=== PATIENT | female | born 1980 | race Caucasian/White ===

== ENCOUNTER → 2016-10-31 | Outpatient (CLI) | payer BC ==
--- NOTE | ~2016-10-31 | PF ---
[place], [place] PULMONARY FUNCTION TEST [id number] UNIT #: [id number] ROOM: DOCTOR: DEONTE DENTON MD,TEJINDER BIRTHDATE: [birth year] DOS: 11/01/2016 The test was ordered by Inge Boston, nurse practitioner. The test was completed on 10/31/2016. HISTORY: The patient noted as a 36 years old female with height of 66 inches, weight of 210 pounds, BMI 33.9. The patient does not have any past history of tobacco use. The patient was reported symptoms of shortness of breath with exertion. There was no cough or wheezing noted. SPIROMETRY: The patient's FVC were recorded 4.26, later 107% predicted value. FEV1 was noted 3.35 liters at 103% predicted value. Ratio of FEV1/FVC were recorded as 97% rather 79%. Flow volume loop for this patient was essentially noted as normal. The patient lung volumes, thoracic gas volume recorded 82%, residual volume 83%, total lung capacity 102%. Lung volumes were noted normal. The patient lung diffusion noted normal. The patient's airway resistance and passive conductance was noted normal as well. FINAL IMPRESSION: Normal pulmonary function testing was noted. TEJINDER CLEMONS MD CM:PFREPORT:PULMONARY FUNCTION TEST [id number] TEJINDER DENTON MD
== END ==
LOC: CP 08:13
DX: E03.9 Hypothyroidism, unspecified (principal); R06.02 Shortness of breath

== ENCOUNTER → 2017-01-19 | Outpatient (CLI) | payer BC | END | disposition home or self-care (01) | LOC: US 09:51 | DX: K76.0 Fatty (change of) liver, not elsewhere classified (principal); K76.9 Liver disease, unspecified ==

== ENCOUNTER → 2019-07-28 | Outpatient (CLI) | payer BC | END | disposition home or self-care (01) | LOC: MAMMO 11:15 | DX: Z12.31 Encounter for screening mammogram for malignant neoplasm of breast (principal); Z00.00 Encounter for general adult medical examination without abnormal findings; E03.9 Hypothyroidism, unspecified; R22.1 Localized swelling, mass and lump, neck; Z20.1 Contact with and (suspected) exposure to tuberculosis; E04.1 Nontoxic single thyroid nodule ==

== ENCOUNTER → 2020-04-20 | Outpatient (CLI) | payer BC | END | disposition home or self-care (01) | LOC: COVID19 00:27 | PROVIDERS: ATTEND Nurse Practitioner Family | DX: Z20.828 Contact with and (suspected) exposure to other viral communicable diseases (principal); A69.20 Lyme disease, unspecified; R53.83 Other fatigue ==

== ENCOUNTER → 2020-04-27 | Outpatient (CLI) | payer BC | END | disposition home or self-care (01) | LOC: LAB 11:36 | PROVIDERS: ATTEND Nurse Practitioner Family | DX: E83.51 Hypocalcemia (principal) ==

== ENCOUNTER 2021-03-03 12:38 | Inpatient (IN) | payer BC ==
[~2021-03-03] VITALS: Ht 168 cm; Wt 104.3 kg
[2021-03-03 17:37] LABS: BASO % 0.2 % (0.0-1.0); HEMATOCRIT 46.1 % (37.0-47.0); LYMPH # 0.8 10*3/uL (1.3-4.4); LYMPH % 14.7 % (27.0-41.0); MEAN CELL VOLUME 90.6 fl (81.0-99.0); MEAN CORPUSCULAR HGB 28.9 pg (27.0-31.0); MEAN CORPUSCULAR HGB CONC 31.9 g/dl (33.0-37.0); MEAN PLATELET VOLUME 9.7 fl (9.6-12.3); MONO # 0.6 10*3/uL (0.1-1.0); MONO % 10.2 % (3.0-9.0); NEUT # 4.2 10*3/uL (2.3-7.9); NEUT % 74.4 % (47.0-73.0); PLATELET COUNT AUTOMATED 158 10*3/uL (130-400); RED BLOOD COUNT 5.09 10*6/uL (4.10-5.10); RED CELL DISTRI WIDTH 12.1 % (0-14.5); WHITE BLOOD COUNT 5.6 10*3/uL (4.8-10.8)
[2021-03-03 17:59] LABS: ALBUMIN 3.1 gm/dl (3.1-4.5); ALKALINE PHOSPHATASE 63 U/L (45-117); BUN 8 mg/dl (7-24); CHLORIDE 102 mmol/L (98-107); CREATININE 0.63 mg/dL (0.55-1.02); LIPASE 133 U/L (73-393); POTASSIUM 3.4 mmol/L (3.5-5.1); SGOT/AST 23 IU/L (3-35); SGPT/ALT 29 U/L (12-78); SODIUM 136 mmol/L (136-145); TOTAL PROTEIN 6.7 gm/dL (6.4-8.2)
[2021-03-03 18:02] LABS: BETA-HCG, QUANT < 1.0 mIU/mL (1-3); TROPONIN I < 0.015 ng/ml (<0.045)
[2021-03-03 18:20] VITALS: BP 122/77
[2021-03-03] MEDS ORDERED: ATORVASTATIN CA10 M1 PO (22:04)
[2021-03-03] MEDS ORDERED: LEVOTHYROXINE75 MCG PO (22:04)
[2021-03-03] MEDS ORDERED: PROAIR HFA8.5 GM INH (22:05)
[2021-03-03] MEDS ORDERED: FLUOXETINE HCL40 MG PO (22:05)
[2021-03-03] MEDS ORDERED: CETIRIZINE HYDR10 MG PO (22:05)
[2021-03-03] MEDS ORDERED: VITAMIN D250 MCG PO (22:07)
[2021-03-04] VITALS (7 sets, daily range): BP systolic 124–132; BP diastolic 71–83
[2021-03-04 06:37] LABS: HEMATOCRIT 44.9 % (37.0-47.0); LYMPH # 0.8 10*3/uL (1.3-4.4); LYMPH % 15.9 % (27.0-41.0); MEAN CELL VOLUME 91.4 fl (81.0-99.0); MEAN CORPUSCULAR HGB 29.3 pg (27.0-31.0); MEAN CORPUSCULAR HGB CONC 32.1 g/dl (33.0-37.0); MEAN PLATELET VOLUME 10.4 fl (9.6-12.3); MONO # 0.5 10*3/uL (0.1-1.0); MONO % 9.7 % (3.0-9.0); NEUT # 3.8 10*3/uL (2.3-7.9); NEUT % 73.8 % (47.0-73.0); PLATELET COUNT AUTOMATED 156 10*3/uL (130-400); RED BLOOD COUNT 4.91 10*6/uL (4.10-5.10); RED CELL DISTRI WIDTH 12.2 % (0-14.5); WHITE BLOOD COUNT 5.2 10*3/uL (4.8-10.8)
[2021-03-04 06:43] LABS: BUN 10 mg/dl (7-24); CHLORIDE 109 mmol/L (98-107); POTASSIUM 3.8 mmol/L (3.5-5.1); SODIUM 140 mmol/L (136-145)
[2021-03-04 06:51] LABS: CREATININE 0.48 mg/dL (0.55-1.02); LDH 262 U/L (84-246)
== END 2021-03-04 23:01 | disposition home or self-care (01) | DRG 177 ==
LOC: ED 12:38 → EDHOLD 18:41
PROVIDERS: Emergency Medicine; Internal Medicine; ADMIT Family Medicine; ATTEND Family Medicine
PROC: XW033E5 Introduction of Remdesivir Anti-infective into Peripheral Vein, Percutaneous Approach, New Technology Group 5 (ICD-10-PCS; principal; 2021-03-04)
DX: U07.1 COVID-19 (principal); J12.82 Pneumonia due to coronavirus disease 2019; J96.01 Acute respiratory failure with hypoxia; R73.9 Hyperglycemia, unspecified; E87.6 Hypokalemia; E03.9 Hypothyroidism, unspecified; F32.9 Major depressive disorder, single episode, unspecified; E78.5 Hyperlipidemia, unspecified; J45.20 Mild intermittent asthma, uncomplicated; Z82.49 Family history of ischemic heart disease and other diseases of the circulatory system; Z79.51 Long term (current) use of inhaled steroids; Z79.899 Other long term (current) drug therapy; Z68.36 Body mass index [BMI] 36.0-36.9, adult

== ENCOUNTER → 2021-03-03 | Outpatient (CLI) | payer BC ==
[~2021-03-03] MED LIST: ATORVASTATIN CA10 M1 PO; CETIRIZINE HYDR10 MG PO; FLUOXETINE HCL40 MG PO; LEVOTHYROXINE75 MCG PO; PROAIR HFA8.5 GM INH; VITAMIN D250 MCG PO
== END | disposition home or self-care (01) ==
LOC: RAD 08:32
PROVIDERS: ATTEND Nurse Practitioner Family
DX: U07.1 COVID-19 (principal)

== ENCOUNTER → 2021-05-09 | Outpatient (CLI) | payer BC | END | disposition home or self-care (01) | LOC: RAD 09:20 | PROVIDERS: ATTEND Nurse Practitioner Family | DX: U07.1 COVID-19 (principal); J12.82 Pneumonia due to coronavirus disease 2019 ==

== ENCOUNTER → 2021-08-05 | Outpatient (CLI) | payer BC | END | disposition home or self-care (01) | LOC: RAD 08:22 | PROVIDERS: ATTEND Nurse Practitioner Family | DX: M53.3 Sacrococcygeal disorders, not elsewhere classified (principal); M54.50 Low back pain, unspecified; E78.5 Hyperlipidemia, unspecified ==

== ENCOUNTER → 2021-09-07 | Outpatient (CLI) | payer BC | END | disposition home or self-care (01) | LOC: LAB 16:29 → RAD 16:29 | PROVIDERS: ATTEND Nurse Practitioner Family | DX: J02.9 Acute pharyngitis, unspecified (principal); R53.83 Other fatigue; R05.9 Cough, unspecified ==

== ENCOUNTER → 2021-12-20 | Outpatient (CLI) | payer BC ==
[2021-12-20 10:44] LABS: BASO # 0.1 10*3/uL (0.0-0.1); BASO % 0.9 % (0.0-1.0); EOS # 0.5 10*3/uL (0.0-0.4); EOS % 6.6 % (1.0-4.0); HEMATOCRIT 43.7 % (37.0-47.0); LYMPH # 2.3 10*3/uL (1.3-4.4); LYMPH % 33.5 % (27.0-41.0); MEAN CELL VOLUME 89.7 fl (81.0-99.0); MEAN CORPUSCULAR HGB 28.5 pg (27.0-31.0); MEAN CORPUSCULAR HGB CONC 31.8 g/dl (33.0-37.0); MEAN PLATELET VOLUME 9.1 fl (9.6-12.3); MONO # 0.7 10*3/uL (0.1-1.0); MONO % 9.8 % (3.0-9.0); NEUT # 3.4 10*3/uL (2.3-7.9); NEUT % 49.1 % (47.0-73.0); PLATELET COUNT AUTOMATED 280 10*3/uL (130-400); RED BLOOD COUNT 4.87 10*6/uL (4.10-5.10); WHITE BLOOD COUNT 6.8 10*3/uL (4.8-10.8)
[2021-12-20 12:11] LABS: BUN 8 mg/dl (7-24); CHLORIDE 110 mmol/L (98-107); POTASSIUM 3.9 mmol/L (3.5-5.1); SODIUM 141 mmol/L (136-145)
[2021-12-20 12:29] LABS: ALKALINE PHOSPHATASE 58 U/L (45-117); CHOLESTEROL 130 mg/dL (<200); CREATININE 0.63 mg/dL (0.55-1.02); LDL CHOLESTEROL 57 mg/dL (9-159); SGOT/AST 20 IU/L (3-35); SGPT/ALT 24 U/L (12-78); TOTAL PROTEIN 6.5 gm/dL (6.4-8.2); TRIGLYCERIDES 71 mg/dl (<150)
== END | disposition home or self-care (01) ==
LOC: LAB 10:17
PROVIDERS: ATTEND Nurse Practitioner Family
DX: F32.9 Major depressive disorder, single episode, unspecified (principal); E03.9 Hypothyroidism, unspecified; E78.5 Hyperlipidemia, unspecified

== ENCOUNTER → 2021-12-22 | Outpatient (CLI) | payer BC ==
[2021-12-22 15:38] LABS: VITAMIN D, 25-HYDROXY 27.6 ng/mL (30-100)
== END | disposition home or self-care (01) ==
LOC: LAB 14:05
PROVIDERS: ATTEND Nurse Practitioner Family
DX: E83.51 Hypocalcemia (principal); E55.9 Vitamin D deficiency, unspecified

== ENCOUNTER → 2022-01-30 | Outpatient (CLI) | payer BC | END | disposition home or self-care (01) | LOC: RAD 11:40 | PROVIDERS: ATTEND Nurse Practitioner Family | DX: J40 Bronchitis, not specified as acute or chronic (principal) ==

== ENCOUNTER → 2022-06-07 | Outpatient (CLI) | payer BC | END | disposition home or self-care (01) | LOC: RAD 14:07 | PROVIDERS: ATTEND Nurse Practitioner Family | DX: J98.4 Other disorders of lung (principal); I51.7 Cardiomegaly ==

== ENCOUNTER → 2022-09-13 | Outpatient (CLI) | payer BC | END | disposition home or self-care (01) | LOC: RAD 10:06 | PROVIDERS: ATTEND Nurse Practitioner Family | DX: J40 Bronchitis, not specified as acute or chronic (principal); J45.20 Mild intermittent asthma, uncomplicated; J30.9 Allergic rhinitis, unspecified; R05.1 Acute cough; R09.81 Nasal congestion ==

== ENCOUNTER → 2023-04-09 | Outpatient (CLI) | payer BC | END | disposition home or self-care (01) | LOC: MAMMO 08:10 | PROVIDERS: ATTEND Nurse Practitioner Women's Health | DX: Z12.31 Encounter for screening mammogram for malignant neoplasm of breast (principal) ==

== ENCOUNTER → 2023-08-29 | Outpatient (CLI) | payer BC ==
[2023-08-29 09:00] LABS: BASO # 0.1 10*3/uL (0.0-0.1); BASO % 0.7 % (0.0-1.0); EOS # 0.4 10*3/uL (0.0-0.4); EOS % 4.8 % (1.0-4.0); HEMATOCRIT 44.4 % (37.0-47.0); LYMPH # 2.4 10*3/uL (1.3-4.4); LYMPH % 32.5 % (27.0-41.0); MEAN CELL VOLUME 90.1 fl (81.0-99.0); MEAN CORPUSCULAR HGB 28.6 pg (27.0-31.0); MEAN CORPUSCULAR HGB CONC 31.8 g/dl (33.0-37.0); MEAN PLATELET VOLUME 9.1 fl (9.6-12.3); MONO # 0.9 10*3/uL (0.1-1.0); MONO % 11.5 % (3.0-9.0); NEUT # 3.8 10*3/uL (2.3-7.9); NEUT % 50.4 % (47.0-73.0); PLATELET COUNT AUTOMATED 319 10*3/uL (130-400); RED BLOOD COUNT 4.93 10*6/uL (4.10-5.10); RED CELL DISTRI WIDTH 12.2 % (0-14.5); WHITE BLOOD COUNT 7.5 10*3/uL (4.8-10.8)
[2023-08-29 09:36] LABS: ALKALINE PHOSPHATASE 63 U/L (46-116); BUN 10 mg/dl (9-23); CHLORIDE 107 mmol/L (98-107); CHOLESTEROL 166 mg/dL (<200); FREE T4 1.03 ng/dl (0.89-1.76); LDL CHOLESTEROL 63 mg/dL (9-159); POTASSIUM 3.5 mmol/L (3.4-5.1); SGPT/ALT 17 U/L (5-49); THYROXINE (T4) TOTAL 6.5 ug/dl (4.5-10.9); TOTAL PROTEIN 6.4 gm/dL (6.0-8.0); TRIGLYCERIDES 210 mg/dl (<150)
[2023-08-29 09:38] LABS: VITAMIN D, 25-HYDROXY 21.3 ng/mL (30-100)
[2023-08-30 08:11] LABS: DHEA SULFATE 70.6 ug/dL (57.3-279.2); SEX HORMONE BINDING GLOBULIN 48.8 nmol/L (24.6-122.0)
[2023-08-30 16:08] LABS: THYROGLOBULIN ANTIBODY 1.6 IU/mL (0.0-0.9)
== END | disposition home or self-care (01) ==
LOC: LAB 08:17
PROVIDERS: ATTEND Nurse Practitioner Obstetrics & Gynecology
DX: E28.2 Polycystic ovarian syndrome (principal); E34.9 Endocrine disorder, unspecified; E56.8 Deficiency of other vitamins; M25.50 Pain in unspecified joint; R53.83 Other fatigue; R63.5 Abnormal weight gain

== ENCOUNTER → 2023-12-03 | Outpatient (CLI) | payer BC ==
[2023-12-03 11:56] LABS: ALKALINE PHOSPHATASE 63 U/L (46-116); BUN 6 mg/dl (9-23); CHLORIDE 109 mmol/L (98-107); POTASSIUM 3.6 mmol/L (3.4-5.1); SGPT/ALT 23 U/L (5-49); TOTAL PROTEIN 6.6 gm/dL (6.0-8.0)
[2023-12-03 12:00] LABS: VITAMIN D, 25-HYDROXY 61.3 ng/mL (30-100)
== END | disposition home or self-care (01) ==
LOC: LAB 10:48
PROVIDERS: ATTEND Nurse Practitioner Obstetrics & Gynecology
DX: E55.9 Vitamin D deficiency, unspecified (principal); E56.8 Deficiency of other vitamins; E34.9 Endocrine disorder, unspecified; N95.9 Unspecified menopausal and perimenopausal disorder; E03.9 Hypothyroidism, unspecified

== ENCOUNTER → 2025-01-06 | Outpatient (CLI) | payer BC | END | disposition home or self-care (01) | LOC: MAMMO 16:11 | PROVIDERS: ATTEND Nurse Practitioner Family | DX: Z12.31 Encounter for screening mammogram for malignant neoplasm of breast (principal); R92.343 Mammographic extreme density, bilateral breasts; N64.89 Other specified disorders of breast; Z76.89 Persons encountering health services in other specified circumstances ==

== ENCOUNTER → 2025-04-28 | Outpatient (CLI) | payer BC ==
[2025-04-28 18:32] LABS: BASO # 0.1 10*3/uL (0.0-0.1); BASO % 0.7 % (0.0-1.0); EOS # 0.5 10*3/uL (0.0-0.4); EOS % 7.4 % (1.0-4.0); MEAN CELL VOLUME 90.5 fl (81.0-99.0); MEAN CORPUSCULAR HGB 29.1 pg (27.0-31.0); MEAN PLATELET VOLUME 9.5 fl (9.6-12.3); MONO # 0.7 10*3/uL (0.1-1.0); MONO % 9.7 % (3.0-9.0); NEUT # 3.8 10*3/uL (2.3-7.9); NEUT % 52.7 % (47.0-73.0); NUCLEATED RED BLOOD CELL 0.0 % (0.0-0.0); NUCLEATED RED BLOOD CELL 0.0 10*3/uL (0.0-0.0); PLATELET COUNT AUTOMATED 367 10*3/uL (130-400); RED CELL DISTRI WIDTH 12.5 % (0-14.5)
[2025-04-28 18:46] LABS: BUN 8 mg/dl (9-23); SGPT/ALT 15 U/L (5-49)
== END | disposition home or self-care (01) ==
LOC: ZRHCWE 14:35
PROVIDERS: ATTEND Nurse Practitioner Family
DX: E03.9 Hypothyroidism, unspecified (principal); E78.1 Pure hyperglyceridemia; R73.03 Prediabetes; F32.9 Major depressive disorder, single episode, unspecified; N62 Hypertrophy of breast; Z12.31 Encounter for screening mammogram for malignant neoplasm of breast; Z76.89 Persons encountering health services in other specified circumstances; Z12.11 Encounter for screening for malignant neoplasm of colon